=== PATIENT | female | born 1935 | race Caucasian/White ===

== ENCOUNTER → 2016-07-11 | Day surgery (SDC) | payer OTHER, MEDICARE ==
[2016-06-27 08:45] VITALS: BMI 38.0
[~2016-07-11] VITALS: Ht 152.4 cm; Wt 89.5 kg
[~2016-07-11] MED LIST: ATOR-22 PO; ATROPINE SULFATE 0.1 MG/ML 5ML SYR IV PRN; CLOT1CRE47; EYE CAPS PO; EpHEDrine SULFATE INJ 50 MG/ML AMP IV PRN; LIDOCAINE HCL 2% 2 ML VIAL (20MG/ML) ONE; LISI10TA PO; METO50TA7 PO; PANT40TA PO; POTA10CA28 PO; PROPOFOL IV EMULSION 10 MG/ML 20 ML VIAL IV ONE; SODIUM CHLORIDE 0.9% 500ML 500 ML IV ONE
[2016-07-11 11:45] VITALS: Ht 152.4 cm; Wt 89.5 kg
--- NOTE | 2016-07-11 12:27 | Endo History and Physical ---
History & Physical Date of Service: Jul 11, 2016. Chief Complaint: GASTRIC BURNING Referring Physician: DR. ALCIDES CHOWDARY History of Present Illness 81 yo CF who presents for EGD secondary to gastric burning. Past Medical History Osteoporosis, Arthritis, Fractures, Reflux, Hypertension, Other Past Surgical History Hx Cardiac Surgery: No Hx Internal Defibrillator: No Hx Pacemaker: No Hx Abdominal Surgery: Yes (COLON RESECTION WITH COLOSTOMY AND REVERSAL) Hx of Implantable Prosthesis: No Hx Post-Op Nausea and Vomiting: No Hx Cancer Surgery: No Hx Thoracic Surgery: No Hx Orthopedic: Yes (RT/LT ANKLE OPEN REDUCTION WITH HARDWARE) Hx Urinary Tract Surgery: Yes (URETAL STENTS AND REMOVAL) Family History Polyp Social History Smoking Status: Never Smoker Hx Substance Use: No Hx Alcohol Use: No Allergies Coded Allergies: Codeine (Verified Adverse Reaction, Mild, GI UPSET, 07/11/16) Meperidine (Verified Adverse Reaction, Mild, GI UPSET, 07/11/16) Morphine (Verified Adverse Reaction, Mild, GI UPSET, 07/11/16) Naproxen (Verified Adverse Reaction, Unknown, VOMITING, 07/11/16) Propoxyphene (Verified Adverse Reaction, Unknown, VOMITING, 07/11/16) Current Medications Reported Home Medications Medications Dose Route/Sig Max Daily Dose Days Date Category Micro-K Ext Rel (Potassium Chloride) 10 Meq Capcr 10 Meq PO BID 06/27/16 Reported [Eye Caps] 1 Tab PO QAM 06/27/16 Reported Protonix (Pantoprazole Sodium) 40 Mg Tab 40 Mg PO QAM 06/27/16 Reported Toprol-Xl (Metoprolol Succinate) 50 Mg Tabcr 50 Mg PO QAM 06/27/16 Reported Prinivil (Lisinopril) 10 Mg Tab 10 Mg PO QAM 11/19/15 Reported Lipitor (Atorvastatin Calcium) 20 Mg Tab 20 Mg PO QPM 11/19/15 Reported Lotrimin 1% 7-Day Vag (Clotrimazole) Cr 1 Dose 10/01/15 Reported Vital Signs Weight (Kilograms): 89.55 Height (Feet): 5 Height (Inches): 0 Date Time Temp Pulse Resp B/P Pulse Ox O2 Delivery O2 Flow Rate FiO2 07/11/16 11:56 36.4 68 20 187/115 98 Room Air Physical Exam General Appearance: WD/WN, no apparent distress Respiratory/Chest: Auscultation: breath sounds normal Cardiovascular: Heart Auscultation: RRR Abdomen: Bowel Sounds: normal Inspection & Palpation: soft, non-distended, no tenderness, guarding & rebound Assessment and Plan Assessment: 81 yo CF who presents for EGD secondary to gastric burning. Plan: Proceed with EGD.
--- NOTE | 2016-07-11 12:34 | Discharge Instructions ---
Endoscopy Patient Instructions Date / Procedure(s) Performed Jul 11, 2016. EGD Allergy Information Coded Allergies: Codeine (Verified Adverse Reaction, Mild, GI UPSET, 07/11/16) Meperidine (Verified Adverse Reaction, Mild, GI UPSET, 07/11/16) Morphine (Verified Adverse Reaction, Mild, GI UPSET, 07/11/16) Naproxen (Verified Adverse Reaction, Unknown, VOMITING, 07/11/16) Propoxyphene (Verified Adverse Reaction, Unknown, VOMITING, 07/11/16) Discharge Date / Findings Jul 11, 2016. Retained food in stomach prompting removal of scope Medication Instructions OK to resume all medications today as prescribed Reported Home Medications Medications Dose Route/Sig Max Daily Dose Days Date Category Micro-K Ext Rel (Potassium Chloride) 10 Meq Capcr 10 Meq PO BID 06/27/16 Reported [Eye Caps] 1 Tab PO QAM 06/27/16 Reported Protonix (Pantoprazole Sodium) 40 Mg Tab 40 Mg PO QAM 06/27/16 Reported Toprol-Xl (Metoprolol Succinate) 50 Mg Tabcr 50 Mg PO QAM 06/27/16 Reported Prinivil (Lisinopril) 10 Mg Tab 10 Mg PO QAM 11/19/15 Reported Lipitor (Atorvastatin Calcium) 20 Mg Tab 20 Mg PO QPM 11/19/15 Reported Lotrimin 1% 7-Day Vag (Clotrimazole) Cr 1 Dose 10/01/15 Reported Provider Instructions Activity Restrictions - No exercising or heavy lifting for 24 hours. - Do not drink alcohol the day of the procedure. - Do not drive a car or operate machinery until the day after the procedure. - Do not make any important decisions or sign important papers in 24 hours after the procedure. Following Day: - Return to full activity which may include returning to work/school. Diet Start your diet with liquids and light foods (jello, soup, juice, toast). Then eat your usual diet if not nauseated. Treatment For Common After Affects For mild abdominal pain, bloating, or excessive gas: - Rest - Eat lightly - Lie on right side Check Gastric emptying study prior to rescheduling EGD. Follow-Up Information Follow-up with DR. ALCIDES CHOWDARY as scheduled Anesthesia Information What You Should Know You have had a procedure that required some medicine to reduce anxiety and discomfort. This treatment is called moderate sedation. After receiving the treatment, you may be sleepy, but you will be able to breathe on your own. The effects of the treatment may last for several hours. Follow these instructions along with Activity/Diet recommendations noted above: * Do NOT do anything where dizziness or clumsiness would be dangerous. * Rest quietly at home today, then you can be up and about tomorrow. * Have a responsible person stay with you the rest of today. * You may have had an I.V. today. If so, you may take the dressing off later today. Recommendations Call your doctor if: * Trouble breathing * Continuous vomiting for more than 24 hours * Temperature above 101 degrees * Severe abdominal pain or bloating * Pain not relieved by pain medicine ordered * There is increased drainage or redness from any incision * A large amount of rectal bleeding greater than 2-3 tablespoons. (If you had a polyp/s removed or have hemorrhoids, a small amount of blood - from the rectum is to be expected.) * You have any unanswered questions or concerns. IN THE EVENT OF A SERIOUS EMERGENCY, GO TO THE NEAREST EMERGENCY ROOM Your discharge instructions were prepared by provider Christopher Tavera. Patient Instructions Signature Page Meredith Garcia Patient (or Guardian) Signature/Date: I have read and understand the instructions given to me by my caregivers. Caregiver/RN/Doctor Signature/Date: The above-named patient and/or guardian has received patient instructions on this date. + Original Patient Signature Page (only) stays with chart. Please make copy for patient.
--- NOTE | 2016-07-11 12:40 | GI REPORT ---
Procedure Date: 07/11/2016 12:17 PM Procedure: Upper GI endoscopy Indications: Epigastric abdominal pain Medicines: Monitored Anesthesia Care Complications: No immediate complications. Estimated Blood Loss: Estimated blood loss: none. Procedure: Pre-Anesthesia Assessment: - Prior to the procedure, a History and Physical was performed, and patient medications and allergies were reviewed. The patient's tolerance of previous anesthesia was also reviewed. The risks and benefits of the procedure and the sedation options and risks were discussed with the patient. All questions were answered, and informed consent was obtained. Prior Anticoagulants: The patient has taken no previous anticoagulant or antiplatelet agents. ASA Grade Assessment: III - A patient with severe systemic disease. After reviewing the risks and benefits, the patient was deemed in satisfactory condition to undergo the procedure. After obtaining informed consent, the endoscope was passed under direct vision. Throughout the procedure, the patient's blood pressure, pulse, and oxygen saturations were monitored continuously. The scope was introduced through the mouth, with the intention of advancing to the duodenum. The scope was advanced to the gastric fundus before the procedure was aborted. Medications were given. The upper GI endoscopy was accomplished without difficulty. The patient tolerated the procedure well. The procedure was aborted due to presence of food. Findings: The esophagus was normal. A large amount of food (residue) was found in the entire examined stomach. Impression: - The procedure was aborted due to presence of food. - Normal esophagus. - A large amount of food (residue) in the stomach. - No specimens collected. Recommendation: - Resume previous diet. - Continue present medications. - Do a gastric emptying study at appointment to be scheduled. - Return to referring physician as previously scheduled. Christopher Tavera, 07/11/2016 12:38:39 PM This report has been signed electronically. Note Initiated On: 07/11/2016 12:17 PM I attest to the content of the Intraoperative Record and orders documented therein, exceptions below
--- NOTE | 2016-07-11 13:06 | Anesthesiology Progress Note ---
Anesthesia Post Op Note Date & Time Jul 11, 2016 at 13:05 Vital Signs Pain Intensity: 0 Vital Signs Past 12 Hours Date Time Temp Pulse Resp B/P Pulse Ox O2 Delivery O2 Flow Rate FiO2 07/11/16 12:54 67 20 174/82 98 Room Air 07/11/16 12:39 71 20 154/73 95 Room Air 07/11/16 11:56 36.4 68 20 187/115 98 Room Air Notes Mental Status: alert / awake / arousable, participated in evaluation Pt Amnestic to Procedure: Yes Nausea / Vomiting: adequately controlled Pain: adequately controlled Airway Patency, RR, SpO2: stable & adequate BP & HR: stable & adequate Hydration State: stable & adequate Anesthetic Complications: no major complications apparent
[2016-07-11 13:09] VITALS: BP 178/91; PULSE 68; O2SAT 98
== END | disposition home or self-care (01) ==
LOC: C.GI 11:38
PROVIDERS: ATTEND Internal Medicine
DX: R10.13 Epigastric pain (principal); Z53.09 Procedure and treatment not carried out because of other contraindication; Z90.49 Acquired absence of other specified parts of digestive tract; I10 Essential (primary) hypertension; E78.5 Hyperlipidemia, unspecified; Z68.38 Body mass index [BMI] 38.0-38.9, adult; E66.01 Morbid (severe) obesity due to excess calories; Z88.5 Allergy status to narcotic agent; Z98.890 Other specified postprocedural states; Z90.89 Acquired absence of other organs; Z83.71 Family history of colonic polyps

== ENCOUNTER → 2016-07-16 | Outpatient (CLI) | payer OTHER, MEDICARE ==
[~2016-07-16] MED LIST changes: -ATROPINE SULFATE 0.1 MG/ML 5ML SYR IV PRN; -EpHEDrine SULFATE INJ 50 MG/ML AMP IV PRN; -LIDOCAINE HCL 2% 2 ML VIAL (20MG/ML) ONE; -PROPOFOL IV EMULSION 10 MG/ML 20 ML VIAL IV ONE; -SODIUM CHLORIDE 0.9% 500ML 500 ML IV ONE
== END | disposition home or self-care (01) ==
LOC: C.PAPS 15:37
PROVIDERS: ATTEND Internal Medicine
DX: Z12.4 Encounter for screening for malignant neoplasm of cervix (principal)

== ENCOUNTER → 2016-07-16 | Outpatient (CLI) | payer OTHER, MEDICARE ==
[2016-07-16 13:29] LABS: BASO % 0.5 %; BASO ABS # 0.03 K/uL (0-0.2); COMPLETE YES; HEMATOCRIT 41.8 % (37-47); IG% 0.2 %; LYMPH % 34.4 %; LYMPH ABS # 2.06 K/uL (1.2-3.4); MEAN CELL VOLUME 87.8 fL (80-100); MEAN CORPUSCULAR HEMOGLOBIN 27.3 pg (25-34); MEAN CORPUSCULAR HGB CONC 31.1 g/dl (32-36); MEAN PLATELET VOLUME 11.6 fL (7.4-10.4); NEUT % 52.9 %; PLATELET COUNT 242 K/uL (130-400); RED BLOOD COUNT 4.76 M/uL (4.2-5.4); WHITE BLOOD COUNT 5.98 K/uL (4.8-10.8)
[2016-07-16 13:49] LABS: ESTIMATED AVERAGE GLUCOSE 140 mg/dl; HA1C FLAG Normal (Normal)
[2016-07-16 14:36] LABS: ALT/SGPT 28 U/L (12-78); AST/SGOT 21 U/L (15-37); BLOOD UREA NITROGEN 18 mg/dl (7-18); CARBON DIOXIDE 27 mmol/L (21-32); CHLORIDE 106 mmol/L (98-107); CHOLESTEROL 167 mg/dl (0-200); CREATININE 0.75 mg/dl (0.60-1.20); GLUCOSE 119 mg/dl (70-99); POTASSIUM 4.1 mmol/L (3.5-5.1); SODIUM 140 mmol/L (136-145)
[2016-07-16 14:37] LABS: CALCIUM 9.1 mg/dl (8.5-10.1)
[2016-07-16 14:41] LABS: ALB/GLOB RATIO 1.1 (0.9-2); ALKALINE PHOSPHATASE 113 U/L (45-117); CHOLESTEROL/HDL RATIO 2.1; HDL CHOLESTEROL 79 mg/dl; TRIGLYCERIDES 56 mg/dl (0-150); VERY LOW DENSITY LIPOPROT CALC 11 mg/dl
== END | disposition home or self-care (01) ==
LOC: C.LABSPEC 12:38
PROVIDERS: ATTEND Internal Medicine
DX: I10 Essential (primary) hypertension (principal); E78.5 Hyperlipidemia, unspecified; R73.9 Hyperglycemia, unspecified

== ENCOUNTER → 2016-07-30 | Day surgery (SDC) | payer OTHER, MEDICARE ==
[2016-07-28 09:13] VITALS: Ht 149.9 cm; Wt 89.5 kg
[~2016-07-30] VITALS: Ht 149.9 cm; Wt 89.5 kg
[~2016-07-30] MED LIST changes: +LABETALOL HCL IV 5 MG/ML 20ML IV ONE; +LIDOCAINE HCL 2% 2 ML VIAL (20MG/ML) ONE; +MIDAZOLAM HCL 1 MG/ML 2ML VIAL ONE; +ONDANSETRON INJ 2 MG/ML 2 ML VIAL ONE; +PROPOFOL IV EMULSION 10 MG/ML 20 ML VIAL IV ONE; +SODIUM CHLORIDE 0.9% 500ML 500 ML IV ONE
--- NOTE | 2016-07-30 09:33 | Endo History and Physical ---
History & Physical Date of Service: July 30, 2016. Chief Complaint: epigastric burning Referring Physician: Dr. Ely History of Present Illness 81 yo CF who presents for EGD secondary to epigastric pain. Past Medical History Osteoporosis, Arthritis, Fractures, Reflux, Hypertension, Other Past Surgical History Hx Cardiac Surgery: No Hx Internal Defibrillator: No Hx Pacemaker: No Hx Abdominal Surgery: Yes (COLON RESECTION WITH COLOSTOMY AND REVERSAL) Hx Post-Op Nausea and Vomiting: No Hx Cancer Surgery: No Hx Thoracic Surgery: No Hx Orthopedic: Yes (RT/LT ANKLE OPEN REDUCTION WITH HARDWARE) Hx Urinary Tract Surgery: Yes (URETAL STENTS AND REMOVAL) Family History Polyp Social History Smoking Status: Never Smoker Hx Substance Use: No Hx Alcohol Use: No Allergies Coded Allergies: Codeine (Verified Adverse Reaction, Mild, GI UPSET, 07/28/16) Meperidine (Verified Adverse Reaction, Mild, GI UPSET, 07/28/16) Morphine (Verified Adverse Reaction, Mild, GI UPSET, 07/28/16) Naproxen (Verified Adverse Reaction, Unknown, VOMITING, 07/28/16) Propoxyphene (Verified Adverse Reaction, Unknown, VOMITING, 07/28/16) Current Medications Reported Home Medications Medications Dose Route/Sig Max Daily Dose Days Date Category Micro-K Ext Rel (Potassium Chloride) 10 Meq Capcr 10 Meq PO BID 06/27/16 Reported [Eye Caps] 1 Tab PO QAM 06/27/16 Reported Protonix (Pantoprazole Sodium) 40 Mg Tab 40 Mg PO QAM 06/27/16 Reported Toprol-Xl (Metoprolol Succinate) 50 Mg Tabcr 50 Mg PO QAM 06/27/16 Reported Prinivil (Lisinopril) 10 Mg Tab 10 Mg PO QAM 11/19/15 Reported Lipitor (Atorvastatin Calcium) 20 Mg Tab 20 Mg PO QPM 11/19/15 Reported Lotrimin 1% 7-Day Vag (Clotrimazole) Cr 1 Dose 10/01/15 Reported Vital Signs Weight (Kilograms): 89.55 Height (Feet): 4 Height (Inches): 11 Date Time Temp Pulse Resp B/P Pulse Ox O2 Delivery O2 Flow Rate FiO2 07/30/16 09:02 36.5 56 20 204/93 96 Room Air 177/80 Physical Exam General Appearance: WD/WN, no apparent distress Respiratory/Chest: Auscultation: breath sounds normal Cardiovascular: Heart Auscultation: RRR Abdomen: Bowel Sounds: normal Inspection & Palpation: soft, non-distended, no tenderness, guarding & rebound Assessment and Plan Assessment: 81 yo CF who presents for EGD secondary to epigastric pain. Plan: Proceed with EGD.
--- NOTE | 2016-07-30 09:46 | Discharge Instructions ---
Endoscopy Patient Instructions Date / Procedure(s) Performed July 30, 2016. EGD Allergy Information Coded Allergies: Codeine (Verified Adverse Reaction, Mild, GI UPSET, 07/28/16) Meperidine (Verified Adverse Reaction, Mild, GI UPSET, 07/28/16) Morphine (Verified Adverse Reaction, Mild, GI UPSET, 07/28/16) Naproxen (Verified Adverse Reaction, Unknown, VOMITING, 07/28/16) Propoxyphene (Verified Adverse Reaction, Unknown, VOMITING, 07/28/16) Discharge Date / Findings July 30, 2016. Non-obstructing Schatzki's Ring s/p dilation from 15 to 18 mm Gastric polyps s/p biopsies Gastritis s/p biopsies S/P Brayan Fundoplication Medication Instructions OK to resume all medications today as prescribed Reported Home Medications Medications Dose Route/Sig Max Daily Dose Days Date Category Micro-K Ext Rel (Potassium Chloride) 10 Meq Capcr 10 Meq PO BID 06/27/16 Reported [Eye Caps] 1 Tab PO QAM 06/27/16 Reported Protonix (Pantoprazole Sodium) 40 Mg Tab 40 Mg PO QAM 06/27/16 Reported Toprol-Xl (Metoprolol Succinate) 50 Mg Tabcr 50 Mg PO QAM 06/27/16 Reported Prinivil (Lisinopril) 10 Mg Tab 10 Mg PO QAM 11/19/15 Reported Lipitor (Atorvastatin Calcium) 20 Mg Tab 20 Mg PO QPM 11/19/15 Reported Lotrimin 1% 7-Day Vag (Clotrimazole) Cr 1 Dose 10/01/15 Reported Provider Instructions Activity Restrictions - No exercising or heavy lifting for 24 hours. - Do not drink alcohol the day of the procedure. - Do not drive a car or operate machinery until the day after the procedure. - Do not make any important decisions or sign important papers in 24 hours after the procedure. Following Day: - Return to full activity which may include returning to work/school. Diet Start your diet with liquids and light foods (jello, soup, juice, toast). Then eat your usual diet if not nauseated. Treatment For Common After Affects For mild abdominal pain, bloating, or excessive gas: - Rest - Eat lightly - Lie on right side Follow-Up Information Follow-up with Dr. Ely as scheduled Anesthesia Information What You Should Know You have had a procedure that required some medicine to reduce anxiety and discomfort. This treatment is called moderate sedation. After receiving the treatment, you may be sleepy, but you will be able to breathe on your own. The effects of the treatment may last for several hours. Follow these instructions along with Activity/Diet recommendations noted above: * Do NOT do anything where dizziness or clumsiness would be dangerous. * Rest quietly at home today, then you can be up and about tomorrow. * Have a responsible person stay with you the rest of today. * You may have had an I.V. today. If so, you may take the dressing off later today. Recommendations Call your doctor if: * Trouble breathing * Continuous vomiting for more than 24 hours * Temperature above 101 degrees * Severe abdominal pain or bloating * Pain not relieved by pain medicine ordered * There is increased drainage or redness from any incision * A large amount of rectal bleeding greater than 2-3 tablespoons. (If you had a polyp/s removed or have hemorrhoids, a small amount of blood - from the rectum is to be expected.) * You have any unanswered questions or concerns. IN THE EVENT OF A SERIOUS EMERGENCY, GO TO THE NEAREST EMERGENCY ROOM Your discharge instructions were prepared by provider Christopher Tavera. Patient Instructions Signature Page Meredith Garcia Patient (or Guardian) Signature/Date: I have read and understand the instructions given to me by my caregivers. Caregiver/RN/Doctor Signature/Date: The above-named patient and/or guardian has received patient instructions on this date. + Original Patient Signature Page (only) stays with chart. Please make copy for patient.
--- NOTE | 2016-07-30 09:54 | GI REPORT ---
Procedure Date: 07/30/2016 9:31 AM Procedure: Upper GI endoscopy Indications: Epigastric abdominal pain Medicines: Monitored Anesthesia Care Complications: No immediate complications. Estimated Blood Loss: Estimated blood loss: none. Procedure: Pre-Anesthesia Assessment: - Prior to the procedure, a History and Physical was performed, and patient medications and allergies were reviewed. The patient's tolerance of previous anesthesia was also reviewed. The risks and benefits of the procedure and the sedation options and risks were discussed with the patient. All questions were answered, and informed consent was obtained. Prior Anticoagulants: The patient has taken no previous anticoagulant or antiplatelet agents. ASA Grade Assessment: III - A patient with severe systemic disease. After reviewing the risks and benefits, the patient was deemed in satisfactory condition to undergo the procedure. After obtaining informed consent, the endoscope was passed under direct vision. Throughout the procedure, the patient's blood pressure, pulse, and oxygen saturations were monitored continuously. The Scope was introduced through the mouth, and advanced to the second part of duodenum. The upper GI endoscopy was accomplished without difficulty. The patient tolerated the procedure well. Findings: A mild Schatzki ring (acquired) was found at the gastroesophageal junction. A TTS dilator was passed through the scope. Dilation with a 15-16.5-18 mm balloon (to a maximum balloon size of 18 mm) dilator was performed. The dilation site was examined and showed no change. Evidence of a Brayan fundoplication was found in the cardia. The wrap appeared loose. This was traversed. Multiple 3 to 8 mm sessile polyps with no bleeding and no stigmata of recent bleeding were found on the greater curvature of the stomach. Biopsies were taken with a cold forceps for histology. Localized mild inflammation characterized by erythema was found in the gastric antrum. Biopsies were taken with a cold forceps for histology. The examined duodenum was normal. Impression: - Mild Schatzki ring. Dilated. - A Brayan fundoplication was found. The wrap appears loose. - Multiple gastric polyps. Biopsied. - Gastritis. Biopsied. - Normal examined duodenum. Recommendation: - Resume previous diet. - Continue present medications. - Await pathology results. - Return to primary care physician as previously scheduled. Christopher Tavera DO 07/30/2016 9:53:50 AM This report has been signed electronically. Note Initiated On: 07/30/2016 9:31 AM I attest to the content of the Intraoperative Record and orders documented therein, exceptions below
--- NOTE | 2016-07-30 10:10 | Anesthesiology Progress Note ---
Anesthesia Post Op Note Date & Time July 30, 2016 at 10:10 Vital Signs Pain Intensity: 0 Vital Signs Past 12 Hours Date Time Temp Pulse Resp B/P Pulse Ox O2 Delivery O2 Flow Rate FiO2 07/30/16 09:02 36.5 56 20 204/93 96 Room Air 177/80 Notes Mental Status: alert / awake / arousable, participated in evaluation Pt Amnestic to Procedure: Yes Nausea / Vomiting: adequately controlled Pain: adequately controlled Airway Patency, RR, SpO2: stable & adequate BP & HR: stable & adequate Hydration State: stable & adequate Anesthetic Complications: no major complications apparent
[2016-07-30 10:20] VITALS: BP 159/77; PULSE 56; O2SAT 96
== END | disposition home or self-care (01) ==
LOC: C.GI 08:37
PROVIDERS: ATTEND Internal Medicine
DX: K29.50 Unspecified chronic gastritis without bleeding (principal); K22.2 Esophageal obstruction; K31.7 Polyp of stomach and duodenum; I10 Essential (primary) hypertension; K21.9 Gastro-esophageal reflux disease without esophagitis; Z90.49 Acquired absence of other specified parts of digestive tract; Z93.3 Colostomy status; Z98.890 Other specified postprocedural states; Z83.71 Family history of colonic polyps; Z88.5 Allergy status to narcotic agent; Z68.41 Body mass index [BMI] 40.0-44.9, adult

== ENCOUNTER → 2016-08-06 | Outpatient (CLI) | payer OTHER, MEDICARE ==
[~2016-08-06] MED LIST changes: -LABETALOL HCL IV 5 MG/ML 20ML IV ONE; -LIDOCAINE HCL 2% 2 ML VIAL (20MG/ML) ONE; -MIDAZOLAM HCL 1 MG/ML 2ML VIAL ONE; -ONDANSETRON INJ 2 MG/ML 2 ML VIAL ONE; -PROPOFOL IV EMULSION 10 MG/ML 20 ML VIAL IV ONE; -SODIUM CHLORIDE 0.9% 500ML 500 ML IV ONE
--- NOTE | 2016-08-06 14:52 | MAMMOGRAPHY REPORT ---
BILATERAL DIGITAL SCREENING MAMMOGRAM WITH CAD: 08/06/2016 CLINICAL HISTORY: Routine screening. Patient has no complaints. TECHNIQUE: Bilateral CC, MLO and left XCCL views were obtained. Current study was also evaluated wi th a Computer Aided Detection (CAD) system. COMPARISON: Comparison is made to exams dated: 08/06/2015 mammogram, 08/03/2014 mammogram, 08/02/2013 mammogram, 07/30/2012 mammogram, 07/28/2011 mammogram, and 07/26/2010 mammogram - [facility] enter. BREAST COMPOSITION: There are scattered areas of fibroglandular density in both breasts. FINDINGS: There is stable nodularity in the anterior aspect of each breast. A few benign-appearing calcifications, and mild vascular calcifications in the breasts. No suspicious mass, architectural distortion or cluster of suspicious microcalcifications is seen. IMPRESSION: ACR BI-RADS CATEGORY 1: NEGATIVE There is no mammographic evidence of malignancy. A 1 year screening mammogram is recommended. The p atient will receive written notification of the results. Approximately 10% of breast cancers are not detected with mammography. A negative mammographic repor t should not delay biopsy if a clinically suggestive mass is present. Karen Jaffe M.D. ay/:08/06/2016 12:07:23 Transmission Maintenance Supervisor: Heather JO)(M), [facility] letter sent: Normal 1/2 BI-RADS Code: ACR BI-RADS Category 1: Negative
== END | disposition home or self-care (01) ==
LOC: C.MAMM 10:42
PROVIDERS: ATTEND Internal Medicine
DX: Z12.31 Encounter for screening mammogram for malignant neoplasm of breast (principal)

== ENCOUNTER → 2017-07-16 | Outpatient (CLI) | payer OTHER, MEDICARE ==
[~2017-07-16] MED LIST changes: -METO50TA7 PO; +METO50TA8 PO
[2017-07-16 13:23] LABS: BASO % 0.6 %; BASO ABS # 0.03 K/uL (0-0.2); EOS % 3.8 %; EOS ABS # 0.19 K/uL (0-0.5); HEMATOCRIT 41.5 % (37-47); HEMOGLOBIN 13.6 g/dL (12.0-16.0); IG# 0.01 K/uL (0.00-0.02); LYMPH % 31.5 %; LYMPH ABS # 1.56 K/uL (1.2-3.4); MEAN CELL VOLUME 87.7 fL (80-100); MEAN CORPUSCULAR HEMOGLOBIN 28.8 pg (25-34); MEAN CORPUSCULAR HGB CONC 32.8 g/dl (32-36); MEAN PLATELET VOLUME 11.2 fL (7.4-10.4); MONO % 11.3 %; MONO ABS # 0.56 K/uL (0.11-0.59); NEUT % 52.6 %; PLATELET COUNT 209 K/uL (130-400); RED CELL DISTRIBUTION WIDTH CV 15.1 % (11.5-14.5); RED CELL DISTRIBUTION WIDTH SD 48.1 fL (36.4-46.3); WHITE BLOOD COUNT 4.95 K/uL (4.8-10.8)
[2017-07-16 13:46] LABS: HEMOGLOBIN A1C 6.6 % (4.5-5.6)
[2017-07-16 14:16] LABS: ALBUMIN 3.6 gm/dl (3.4-5.0); ALT/SGPT 28 U/L (12-78); AST/SGOT 21 U/L (15-37); BLOOD UREA NITROGEN 16 mg/dl (7-18); CARBON DIOXIDE 30 mmol/L (21-32); CHOLESTEROL 151 mg/dl (0-200); CREATININE 0.81 mg/dl (0.60-1.20); GLUCOSE 117 mg/dl (70-99); POTASSIUM 3.7 mmol/L (3.5-5.1); SODIUM 138 mmol/L (136-145)
[2017-07-16 14:21] LABS: ALKALINE PHOSPHATASE 124 U/L (45-117); LDL CHOLESTEROL (DIRECT) 75 mg/dl
== END | disposition home or self-care (01) ==
LOC: C.LABSPEC 12:58
PROVIDERS: ATTEND Internal Medicine
DX: I10 Essential (primary) hypertension (principal); E78.5 Hyperlipidemia, unspecified; R73.9 Hyperglycemia, unspecified